=== PATIENT | male | born 2000 | race Caucasian/White ===

== ENCOUNTER → 2021-05-29 | Outpatient (CLI) | payer OTHER ==
[~2021-05-29] MED LIST: ALBU2SYA PO; AMOX50SU PO; AMPDEX5 PO; BUSP15 PO; CODGUAEL PO; METPRE4DP PO; Norco 10-325 T1 EACH PO; QUET300 PO; RXCODGUASY PO; Vibramycin100 MG PO
[2021-05-29 17:22] LABS: Anion Gap 9 mmol/L (6-16); Blood Urea Nitrogen 14 mg/dL (8-24); Bun/Creatinine Ratio 16.7 (12.0-20.0); CO2, Blood 27 mmol/L (21-32); Calcium, Blood 9.2 mg/dL (8.5-10.1); Chloride, Blood 104 mmol/L (98-108); Creatinine, Blood 0.84 mg/dL (0.60-1.20); Glomerular Filtration Rate >60 (60-); Glucose, Blood 80 mg/dL (70-99); Potassium, Blood 4.8 mmol/L (3.5-5.5); Sodium, Blood 140 mmol/L (136-145)
== END | disposition home or self-care (01) ==
LOC: LAB SHORT 17:12 → LAB 17:12
PROVIDERS: Physician Assistant Surgical
DX: R30.9 Painful micturition, unspecified (principal)
CPT/HCPCS: 80048

== ENCOUNTER 2024-12-29 20:31 | Emergency (ER) | payer OTHER ==
[~2024-12-29] VITALS: Ht 160 cm; Wt 56.7 kg
[2024-12-29 21:35] LABS: BASOPHILS ABSOLUTE AUTO 0.06 K/mm3 (0.00-0.23); BASOPHILS PERCENT AUTO 0 % (0-2); EOSINOPHILS ABSOLUTE AUTO 0.16 K/mm3 (0.00-0.68); EOSINOPHILS PERCENT AUTO 1 % (0-6); Hematocrit 47.1 % (37.0-53.0); IMMATURE GRAN ABSOLUTE AUTO 0.17 K/mm3 (0.00-0.10); IMMATURE GRAN PERCENT AUTO 1 % (0-1); LYMPHOCYTES ABSOLUTE AUTO 4.52 K/mm3 (0.84-5.20); LYMPHOCYTES PERCENT AUTO 22 % (21-46); MONOCYTES ABSOLUTE AUTO 1.76 K/mm3 (0.16-1.47); MONOCYTES PERCENT AUTO 8 % (4-13); Mean Corpuscular Volume 91 fL (80-100); Mean Platelet Volume 9.6 fL (9.1-12.4); NEUTROPHILS ABSOLUTE AUTO 14.34 K/mm3 (1.96-9.15); NEUTROPHILS PERCENT AUTO 68 % (41-73); Platelet Count 298 K/mm3 (150-400); RDW Coefficient Variation 12.7 % (11.7-14.2); RDW Standard Deviation 42.5 fL (35.1-46.3); Red Blood Cell Count 5.16 M/mm3 (4.30-5.90); White Blood Cell Count 21.01 K/mm3 (4.00-11.30)
[2024-12-29 21:53] LABS: Albumin, Blood 3.7 g/dL (3.4-5.0); Albumin/Globulin Ratio 0.9 (0.8-1.8); Bilirubin, Total 0.4 mg/dL (0.1-1.0); Bun/Creatinine Ratio 9.1 (12.0-20.0); Calcium, Blood 8.6 mg/dL (8.5-10.1); Creatinine, Blood 0.66 mg/dL (0.60-1.20); Globulin, Blood 4.1 g/dL (2.2-4.0); Potassium, Blood 3.8 mmol/L (3.5-5.5); Total Protein, Blood 7.8 g/dL (6.4-8.2)
[2024-12-29] MEDS ORDERED: Nicotine 21 MG PATCH TOP ONE (22:35)
[2024-12-29] MEDS ORDERED: Lactated Ringer's 1,000 ML IV SCH (22:35)
[2024-12-29] MEDS ORDERED: Azithromycin 500 MG in NS 250 ML IV ONE (22:40)
[2024-12-29] MEDS ORDERED: Cefepime HCl 1,000 MG in NS 100 ML IV ONE (22:40)
[2024-12-29 23:17] LABS: Source, Urine Clean Catch
[2024-12-29 23:29] LABS: Bilirubin, Urine Neg (Neg); Blood, Urine Neg (Neg); Glucose Qualitative, Urine Neg (Neg); Ketones, Urine Neg (Neg); Leukocyte Esterase, Urine Neg (Neg); Nitrite, Urine Neg (Neg); Protein, Urine 1+ (Neg); Urobilinogen, Urine NORM (Normal)
[2024-12-29 23:35] LABS: Appearance, Urine Clear (Clear); Color, Urine Yellow (P-Yellow)
[2024-12-30 01:00] VITALS: BP 134/88
[2024-12-30] MEDS ORDERED: CIPR500 PO (01:21)
[2024-12-30] MEDS ORDERED: Ciprofloxacin 500 MG Tab PO ONE (01:45)
== END 2024-12-30 01:58 | disposition home or self-care (01) ==
LOC: ER 20:31
PROVIDERS: Student in an Organized Health Care Education/Training Program
DX: J40 Bronchitis, not specified as acute or chronic (principal); J02.9 Acute pharyngitis, unspecified; Z88.2 Allergy status to sulfonamides; Z88.0 Allergy status to penicillin
CPT/HCPCS: 71046; 80053; 83605; 85025; 87081; 87147; 87430; 93005; 93010; 96361; 96365; 99283-25; A9270; J0456; J0692; J7050; J7120

== ENCOUNTER 2025-01-14 10:41 | Emergency (ER) | payer OTHER ==
[~2025-01-14 10:41] MED LIST changes: +CIPR500 PO
== END 2025-01-14 11:01 | disposition left against medical advice (07) ==
LOC: ER 10:41
DX: R42 Dizziness and giddiness (principal); R51.9 Headache, unspecified; R55 Syncope and collapse; Z53.21 Procedure and treatment not carried out due to patient leaving prior to being seen by health care provider